=== PATIENT | female | born 1995 | race Two or more races ===

== ENCOUNTER → 2018-12-30 | Outpatient (CLI) | payer BC | END | disposition home or self-care (01) | LOC: CFH 13:29 | PROVIDERS: ATTEND Family Medicine | DX: N63.20 Unspecified lump in the left breast, unspecified quadrant (principal) ==

== ENCOUNTER 2019-02-18 09:09 | Outpatient (CLI) | payer BC | END 2019-02-18 23:59 | disposition home or self-care (01) | LOC: CFH 09:09 → EDSTATUS 09:30 → CFH 23:59 | PROVIDERS: ATTEND Family Medicine | DX: D24.2 Benign neoplasm of left breast (principal) | CPT/HCPCS: 19083; 77065; 88305; J3490 ==